=== PATIENT | male | born 1935 | race Caucasian/White ===

== ENCOUNTER 2018-04-23 08:10 | Outpatient (CLI) | payer MEDICARE, SELFPAY ==
[2018-04-23 14:40] LABS: ALT 22 U/L (12-78); AST 18 U/L (15-37); Albumin 3.6 g/dL (3.4-5.0); Alkaline Phosphatase 98 U/L (46-116); Anion Gap 8.8 mmol/L (3-11); BUN 21 mg/dL (7-18); Bilirubin, Total 0.8 mg/dL (0.2-1.0); CO2 29.2 mmol/L (21.0-32.0); CREATININE 1.41 mg/dL (0.70-1.30); Calcium 9.3 mg/dL (8.5-10.1); Chloride 100 mmol/L (98-107); Cholesterol 155 mg/dL (50-200); Estimated GFR 48.24 (mL/min/1.73m2); Glucose 92 mg/dL (70-100); HDL Cholesterol 35 mg/dL (40-60); LDL CHOLESTEROL 104 mg/dL (<100); Potassium 4.6 mmol/L (3.5-5.1); Sodium 138 mmol/L (136-145); Total Protein 7.3 g/dL (6.4-8.2); Triglyceride 80 mg/dL (30-150)
== END 2018-04-23 08:30 ==
PROVIDERS: PCP Nurse Practitioner; Visit Provider Nurse Practitioner
DX: E78.5 Hyperlipidemia, unspecified (principal); I10 Essential (primary) hypertension
CPT/HCPCS: 36415; 80053; 80061; 83721

== ENCOUNTER 2019-04-20 03:05 | Outpatient (CLI) | payer MEDICARE, SELFPAY ==
[2019-04-20 10:56] LABS: ALT 15 U/L (16-63); AST 14 U/L (15-37); Albumin 3.6 g/dL (3.4-5.0); Alkaline Phosphatase 98 U/L (46-116); Anion Gap 8.6 mmol/L (3-11); BUN 20 mg/dL (7-18); Bilirubin, Total 0.8 mg/dL (0.2-1.0); CO2 29.4 mmol/L (21.0-32.0); CREATININE 1.34 mg/dL (0.70-1.30); Calcium 9.2 mg/dL (8.5-10.1); Calculated LDL 91 mg/dL; Chloride 104 mmol/L (98-107); Cholesterol 141 mg/dL (<200); Estimated GFR 51.03 (mL/min/1.73m2); Glucose 86 mg/dL (74-106); HDL Cholesterol 38 mg/dL (40-60); Potassium 5.2 mmol/L (3.5-5.1); Sodium 142 mmol/L (136-145); Total Protein 7.3 g/dL (6.4-8.2); Triglyceride 61 mg/dL (<150)
== END 2019-04-20 03:25 ==
PROVIDERS: PCP Nurse Practitioner; Visit Provider Nurse Practitioner
DX: E78.5 Hyperlipidemia, unspecified (principal); I10 Essential (primary) hypertension; I25.10 Atherosclerotic heart disease of native coronary artery without angina pectoris; N18.3 Chronic kidney disease, stage 3 (moderate)
CPT/HCPCS: 36415; 80053; 80061

== ENCOUNTER 2020-04-17 06:44 | Emergency (ER) | payer MEDICARE, SELFPAY ==
[2020-04-17] VITALS (27 sets, daily range): BP systolic 114–133; BP diastolic 71–84; PULSE 82–126; RESP 13–32; TEMP 36.7; O2SAT 96–100
--- NOTE | 2020-04-17 | DI.CT_ITS ---
EXAM: CT LOWER EXTREMITY LT WO CLINICAL HISTORY: pathologic fracture of the left prox femur. TECHNIQUE: Imaging Protocol: Axial computed tomography images with coronal and sagittal reformatted images were created and reviewed. CONTRAST MATERIAL: Intravenous: None COMPARISON: Plain films from earlier today reviewed FINDINGS: There is a significantly displaced fractures through the lower intertrochanteric-subtrochanteric leo on of the left hip. There is a permeated of osseous pattern and this is a pathologic fracture. The femoral cortex below this level is hyperdense and exhibits some lucent areas. Similar findings are n ot seen in the femoral head and neck nor in the acetabulum nor in the ipsilateral pubic rami and isch ial tuberosity. IMPRESSION: Findings are consistent with a significantly displaced pathologic fracture of the lower intertrochant david-subtrochanteric region of the left hip. There is an ominous permeated of osseous pattern in the ipsilateral femur. RADIATION DOSE DELIVERED: 382.01mGy.cm Total DLP DATA REPOSITORY: All CT scans at this facility are submitted to the National Radiology Data Registry (NRDR) Dose Index Registry (DIR) with the [employer] (ACR). RADIATION OPTIMIZATION: All CT scans at this facility use at least one of these dose optimization te chniques: automated exposure control; mA and/or kV adjustment per patient size (includes targeted exa ms where dose is matched to clinical indication); or iterative reconstruction.
--- NOTE | 2020-04-17 06:30 | RT.EKG_ITS ---
APPROVED REPORT Exam: Resting ECG Patient Location: E HR:115 bpm ECG Measurements Heart Rate 115 AXIS ND 139 P 0 QRSd 169 QRS -104 QT 383 T 84 QTc 529 Conclusion Sinus tachycardia...rate> 99 RBBB and LAFB...QRSd >120mS, axis(-40,240) Lateral infarct, old...Q>40mS, flat T, V5 V6 I aVL
--- NOTE | 2020-04-17 06:30 | DI.RAD_ITS ---
EXAM: XR HIP LT COMPLETE AP PELVIS CLINICAL HISTORY: pain s/p fall. TECHNIQUE: 2D digital imaging was performed. COMPARISON: No exams were available for comparison FINDINGS: There is a severely displaced intertrochanteric fracture of the left hip. The subtrochanteric region there is cirrhotic change in the left femur which may represent blastic metastatic disease. In the opposite-right hip there is a 1 centimeter lucency in the upper subtrochanteric region which may be l ytic. Incidentally noted are limbs from what is probably an aortic EVAR graft and there are embolization co ils in both internal iliac arteries. IMPRESSION: Displaced intertrochanteric fracture of the left hip. 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 1 centimeter lucent bone lesion in the opposite-right hip, possibly lytic. Aortic EV AR noted. DATA REPOSITORY: RADIATION DOSE DELIVERED:
--- NOTE | 2020-04-17 06:30 | DI.RAD_ITS ---
EXAM: XR CHEST 1V IN DI DEPT CLINICAL HISTORY: pain s/p fall. TECHNIQUE: 2D digital imaging was performed. COMPARISON: CR CHEST 2 VIEWS PA,LAT from 07/14/2017 CR CHEST 2 VIEWS PA,LAT from 07/14/2017 FINDINGS: Heart size upper normal. Sternotomy wires and evidence of previous CABG Emphysematous changes but no new infiltrates nor pleural effusions. No pulmonary edema No obvious fractures IMPRESSION: No acute pulmonary findings on this single AP portable view of the chest. DATA REPOSITORY: RADIATION DOSE DELIVERED:
--- NOTE | 2020-04-17 06:47 | ED.GENADUL_ITS ---
Discharge Plan Disposition Patient Disposition: [facility] Condition: Serious Discharge Details Clinical Impression: Closed fracture of left hip, Pathologic fracture Primary Care Provider: Esperanza Tillman ED Provider: Horace Reynoso Home Meds and New Rx's Prescriptions: No Action enalapril maleate 5 mg tablet 5 mg PO DAILY Qty: 90 RF: 3 clopidogrel [Plavix] 75 mg tablet 75 mg PO DAILY Qty: 90 RF: 3 folic acid 0.4 MG tablet 0.4 mg PO DAILY RF: 0 garlic 1 EACH capsule 1 ea PO DAILY RF: 0 nitroglycerin 0.4 MG tablet, sublingual 0.4 mg Sublingual PRN Qty: 30 RF: 0 cyanocobalamin (vitamin B-12) 1,000 mcg/mL solution 1,000 mcg IJ QMONTH Qty: 1 RF: 0 omega-3 fatty acids-fish oil 300-1,000 mg capsule 1 cap PO DAILY RF: 0 pravastatin 10 mg tablet 10 mg PO DAILY Qty: 90 RF: 3 Medical Decision Making <Valdo Fry MD - Last Filed: 04/17/20 07:25> 85 yo male with hx of ckd, hld, cad, who comes in after he tripped on his walker this morning and fell landing on his left hip, denies loc or preceding symptoms. HAs pain in the left hip with obvious deformity with what feels like the left acetabulum dislocated anteriorly, has strong distal pulses and sensation. No chest pain, abdominal pain, head pain or neck pain. Seems like amechanical fall causing likely hip fracture/dislocation. Will obtain xrays and preop labs and monitor. Denies any preceding symptoms so doubt presyncope/syncope. xray on my read shows left hip fracture, remains stable. Consulted with Dr. Breaux who will review films and likely OR later today or tomorrow. Will discuss with hospitalist about admission spoke with Dr. sol who agrees to admission. Pt remains stable. Will sign out to oncoming provider in the ED to f/u on lab results as he will likely be in the ED another hour or so. spoke with Dr. Breaux who advises this is a pathological fracture and requests femur xray and ct chest /abd/pelvis as well and will see the patient later today Differential Diagnosis Differential Diagnosis: left hip fracture, dislocation Medical Records Medical records reviewed: Yes I reviewed the patient's medical records. Imaging Data Radiologic Study: Attestation: I personally reviewed and interpreted this imaging study as follows: Imaging: X-Ray My impression: fracture left hip Radiologic Study #2: Attestation: I personally reviewed and interpreted this imaging study as follows: Imaging: X-Ray My impression: no acute findings on cxr ECG Data Attestation: I personally reviewed and interpreted this ECG (s) as follows: Prior ECG tracings: available for review Interpretation: sinus tachycardia, rate of 115, rbbb and lafb, qtc 529 <Horace Reynoso MD - Last Filed: 04/17/20 10:24> 8:55 -- Labs reviewed. I spoke with Dr. Breaux who recommends transfer to tertiary care facility for further treatment given complexity of disease. I called [facility] transfer center to request transfer. Images sent for review. --CT of the chest abdomen pelvis interpreted by radiology: IMPRESSION: 1. There is a displaced probable pathologic fracture of the idro-ajpewxhwhyjfjpfqp-hdth. There is a mixed lytic-blastic appearance of the upper femur at this level. In addition, there is a 10 x 9 millimeter lytic lesion in the anterior cortex subtrochanteric region of the opposite-right hip. There also appears to be subtle blastic involvement of the left iliac bone. 2. Enhancing area in the left side of the prostate gland which may be significant. There is no obturator adenopathy. 3. Pleural based infiltrate in the right lower lobe as described above, not associated with rib destruction or pleural effusion or intrathoracic adenopathy. This requires follow-up. 4. Aortic stent graft. No obvious anastomosis leak. [place] aortic sac diameter is 3.7 centimetres 5. There is scarring of the right kidney but no significant renal lesion. No hydronephrosis. 10:10 --I spoke with Dr. Fagan (emergency medicine physician) and Dr. Olvera (orthopedic surgeon) fire prevention specialist at [facility]. Discussed ED presentation course. They will accept the patient in transfer. Will arrange for scale balancer level transfer. Lab Data Lab results reviewed: Yes I reviewed the patient's lab results. Labs: Laboratory Tests Range/Units 04/17/20 04/17/20 04/17/20 07:17 07:17 07:17 WBC (4.4-10.8) 10^3/uL 17.39 H RBC (4.36-5.78) 10^6/uL 3.41 L Hgb (13.5-17.5) g/dL 10.4 L Hct (40.0-50.0) % 32.8 L MCV (80-95) fL 96.2 H MCH (27.0-33.0) pg 30.5 MCHC (32.0-36.0) % 31.7 L RDW (11.8-14.1) % 15.7 H Plt Count (130-400) 10^3/uL 444 H MPV (8.0-11.0) fL 9.6 Immature Gran % 0.6 Neutrophils % 91.1 Lymphocytes % 3.5 Monocytes % 4.5 Eosinophils % 0.1 Basophils % 0.2 Nucleated RBC % % 0 Absolute Neutrophils (1.2-6.7) 10^3/uL 15.84 H Absolute Lymphocytes (1.2-3.4) 10^3/uL 0.61 L Absolute Monocytes (0.1-0.8) 10^3/uL 0.78 Absolute Eosinophils (0.0-0.7) 10^3/uL 0.02 Absolute Basophils (0.0-0.2) 10^3/uL 0.03 PT (9.3-11.0) sec 12.1 H INR (0.9-1.1) 1.2 H APTT (21.0-27.5) sec 30.1 H Sodium (136-145) mmol/L 133 L Potassium (3.5-5.1) mmol/L 4.0 Chloride (98-107) mmol/L 97 L Carbon Dioxide (21.0-32.0) mmol/L 28.3 Anion Gap (3-11) mmol/L 7.7 BUN (7-18) mg/dL 13 Creatinine (0.70-1.30) mg/dL 1.18 Estimated GFR/1.73 m2 (mL/min/1.73m2) 58.95 Glucose (74-106) mg/dL 137 H Calcium (8.5-10.1) mg/dL 10.0 Total Bilirubin (0.2-1.0) mg/dL 0.6 AST (15-37) U/L 33 ALT (16-63) U/L 41 Alkaline Phosphatase (46-116) U/L 98 Troponin I (<0.06) ng/mL < 0.05 Total Protein (6.4-8.2) g/dL 7.9 Albumin (3.4-5.0) g/dL 2.1 L Patient ABO/Rh Antibody Screen Range/Units 04/17/20 07:17 WBC (4.4-10.8) 10^3/uL RBC (4.36-5.78) 10^6/uL Hgb (13.5-17.5) g/dL Hct (40.0-50.0) % MCV (80-95) fL MCH (27.0-33.0) pg MCHC (32.0-36.0) % RDW (11.8-14.1) % Plt Count (130-400) 10^3/uL MPV (8.0-11.0) fL Immature Gran % Neutrophils % Lymphocytes % Monocytes % Eosinophils % Basophils % Nucleated RBC % % Absolute Neutrophils (1.2-6.7) 10^3/uL Absolute Lymphocytes (1.2-3.4) 10^3/uL Absolute Monocytes (0.1-0.8) 10^3/uL Absolute Eosinophils (0.0-0.7) 10^3/uL Absolute Basophils (0.0-0.2) 10^3/uL PT (9.3-11.0) sec INR (0.9-1.1) APTT (21.0-27.5) sec Sodium (136-145) mmol/L Potassium (3.5-5.1) mmol/L Chloride (98-107) mmol/L Carbon Dioxide (21.0-32.0) mmol/L Anion Gap (3-11) mmol/L BUN (7-18) mg/dL Creatinine (0.70-1.30) mg/dL Estimated GFR/1.73 m2 (mL/min/1.73m2) Glucose (74-106) mg/dL Calcium (8.5-10.1) mg/dL Total Bilirubin (0.2-1.0) mg/dL AST (15-37) U/L ALT (16-63) U/L Alkaline Phosphatase (46-116) U/L Troponin I (<0.06) ng/mL Total Protein (6.4-8.2) g/dL Albumin (3.4-5.0) g/dL Patient ABO/Rh A Negative Antibody Screen Negative HPI <Valdo Fry MD - Last Filed: 04/17/20 07:25> General Mode of arrival: EMS . Date/Time Provider Initiated Documentation: 04/17/20 06:46 . Limitations to Documentation: no limitations . Information obtained by: patient . History of Present Illness 85 year old M presents to the emergency department with the chief complaint of left hip pain, described as moderate, and it has been constant. No relieving factors improve symptom(s), No exacerbating factors reported . Related Data Home Medications Medication Instructions Recorded Confirmed folic acid 0.4 mg PO DAILY tab-cap 07/28/12 04/17/20 garlic 1 ea PO DAILY 07/28/12 04/17/20 nitroglycerin 0.4 mg SUBLINGUAL PRN #30 tab 07/22/17 04/17/20 cyanocobalamin (vitamin B-12) 1,000 mcg IJ QMONTH #1 vial 01/05/18 04/17/20 1,000 mcg/mL injection solution omega-3 fatty acids-fish oil 300 1 cap PO DAILY cap 01/05/18 04/17/20 mg-1,000 mg capsule clopidogrel 75 mg tablet 75 mg PO DAILY #90 tab-cap 04/26/19 04/17/20 enalapril maleate 5 mg tablet 5 mg PO DAILY #90 tab-cap 04/26/19 04/17/20 pravastatin 10 mg tablet 10 mg PO DAILY #90 tab-cap 10/25/19 04/17/20 Previous Rx's Medication Instructions Recorded nitroglycerin 0.4 mg SUBLINGUAL PRN #30 tab 07/22/17 clopidogrel 75 mg tablet 75 mg PO DAILY #90 tab-cap 04/26/19 enalapril maleate 5 mg tablet 5 mg PO DAILY #90 tab-cap 04/26/19 pravastatin 10 mg tablet 10 mg PO DAILY #90 tab-cap 10/25/19 Allergies Allergy/AdvReac Type Severity Reaction Status Date / Time No Known Allergies Allergy Verified 04/17/20 06:48 Review of Systems <Valdo Fry MD - Last Filed: 04/17/20 07:25> All systems reviewed & are unremarkable except as noted in HPI and below Constitutional Constitutional: Denies chills, Denies fever(s) and Denies weakness Cardiovascular Cardiovascular: Denies chest pain and Denies dyspnea Respiratory Respiratory: Denies cough and Denies dyspnea Gastrointestinal Gastrointestinal: Denies abdominal pain, Denies nausea and Denies vomiting Neurologic Neurologic: Denies weakness PFSH <Valdo Fry MD - Last Filed: 04/17/20 07:25> Surgical History Amputation of right thumb 2002 Coronary Artery Bypass Gaft (CABG) 1983 Endoleak post (EVAR) endovascular aneurysm repair 2002 H/O abdominal surgery pancreas repair H/O vascular surgery 07/06/08 Repair of inguinal hernia Family History Mother No problems noted. Father No problems noted. Social History (Updated 10/20/18 @ 08:15 by Homa Kumar RN) Smoking/Tobacco Use Status: Former Tobacco Use Quit Date: 05/05/74 Smoking risk assessment performed?: Yes Alcohol Intake: current Alcohol Intake frequency: a few times a month Alcohol type: wine Substance use type: does not use Household members: spouse Number of Children: 3 Pets and animals: Yes Pets and animals: cat(s) What is your relationship status?: Panel score (0-1 are the most socially isolated patients): 1 What type of physical activity do you participate in: walking and other Details: lugging wood, yard work, fishing. Duration: 30-45 minutes/day Frequency: 3-4 times per week Seatbelt use: always Working smoke detector in home: Yes Fire extinguisher in home: Yes Carbon monox detector in home: Yes Firearms in home: Yes Firearms unloaded and locked: Yes Do you feel safe at home: Yes Do you feel safe in your relationship?: Yes Exam <Valdo Fry MD - Last Filed: 04/17/20 07:25> Const General: no acute distress Orientation: alert [facility] Head: normal to inspection Ears: external ears normal General nose exam: external nose normal Mouth: moist mucous membranes Eyes General: appearance normal, both eyes and all related structures Neck Neck: normal visual inspection Resp Effort & Inspection: normal respiratory effort and able to speak in complete sentences Cardio Rate: regular rate Skin General skin exam: no rashes or lesions noted Neuro General: patient alert and patient oriented x3 Extrem General: capillary refill normal Psych Mental Status: mental status grossly normal Sign Out <Valdo Fry MD - Last Filed: 04/17/20 07:25> Sign Out Data: Sign Out Comment: pathological hip fracture, Dr. Chung aware and Dr. Sol accepts for admission. Follow up labs and also has pending ct/chest/abd/pelvis and femur xray for cancer screening Last updated by Valdo Fry MD at 04/17/20 07:28
--- NOTE | 2020-04-17 07:15 | DI.CT_ITS ---
EXAM: CT CHEST/ABD/PEL W CLINICAL HISTORY: pathological left hip fracture, ?cancer. TECHNIQUE: Imaging Protocol: Axial computed tomography images with coronal and sagittal reformatted images were created and reviewed CONTRAST MATERIAL: Intravenous: Omnipaque 350 Contrast volume:100 ml Oral: None COMPARISON: No exams were available for comparison FINDINGS: CHEST: LUNGS: There is pleural based infiltrate in the posterior basal segment of the right lower lobe. Thi s measures approximately 2.5 centimetres wide by 1 centimeter. There is no associated rib destructio n.. No associated pleural effusion. Mild benign-appearing increased markings are noted in the poste rior basal segment of the opposite-left lower lobe. No left pleural effusion. MEDIASTINUM: There is no hilar nor mediastinal adenopathy. Visualized thyroid unremarkable. CARDIAC: Heart size is normal. There is no pericardial effusion.Caliber of the thoracic aorta is wit hin normal limits. OSSEOUS: No significant osseous lesions.. ABDOMEN: There is no ascites. LIVER: No focal hepatic lesions. Mild prominence of intrahepatic ducts. GALLBLADDER/BILIARY: There are no gallstones evident but the gallbladder appears slightly distended. CBD diameter is upper normal. PANCREAS: No evidence of pancreatic mass nor dilatation of the pancreatic duct. SPLEEN: Spleen is not enlarged. There are no intrasplenic lesions. Splenic and portal veins are castillo nt. ADRENALS: There are no significant adrenal masses. KIDNEYS: No calculi nor hydronephrosis. No solid renal masses. No renal cysts evident. Cortical scar ring in the right kidney is noted. No ominous renal masses. No hydronephrosis. No hydroureter. No obvious abnormality in the urinary bladder. ABDOMINAL AORTA: There is an aortic EVAR. Tribal sac diameter is 3.7 centimetres. No occlusion. Mi ld aneurysmal dilatation of the left common femoral artery. ABDOMINAL WALL/GI: No evidence of significant anterior abdominal wall hernia. No bowel obstruction. No ischemic appearing bowel loops. PELVIS: LYMPH NODES: There is no intrapelvic nor inguinal adenopathy. GI: No evidence of appendicitis.No evidence of sigmoid diverticulitis. URINARY BLADDER: No calculi nor masses evident REPRODUCTIVE: Prostate gland slightly prominent. Abnormal enhancing region in left side of the prost ate gland, possibly significant with respect to lesion. OSSEOUS: There is a displaced intertrochanteric fracture of the left hip. There is also abnormal den sity at the fracture site combination lytic and blastic appearance. In addition, there is a small ly tic lesion in the opposite-right hip involving the anterior cortex of the subtrochanteric region and measuring approximately 9 x 10 millimeters, associated with cortical dehiscence. No other lytic lesi ons identified. Subtle increased intraosseous density in left side of the pelvis may be blastic. IMPRESSION: 1. There is a displaced probable pathologic fracture of the ngln-hplktwtelegxfiatg-lfwd. There is a mixed lytic-blastic appearance of the upper femur at this level. In addition, there is a 10 x 9 mill imeter lytic lesion in the anterior cortex subtrochanteric region of the opposite-right hip. There a lso appears to be subtle blastic involvement of the left iliac bone. 2. Enhancing area in the left side of the prostate gland which may be significant. There is no obtur ator adenopathy. 3. Pleural based infiltrate in the right lower lobe as described above, not associated with rib destr uction or pleural effusion or intrathoracic adenopathy. This requires follow-up. 4. Aortic stent graft. No obvious anastomosis leak. Tribal aortic sac diameter is 3.7 centimetres 5. There is scarring of the right kidney but no significant renal lesion. No hydronephrosis. RADIATION DOSE DELIVERED: 785.93mGy.cm Total DLP DATA REPOSITORY: All CT scans at this facility are submitted to the National Radiology Data Registry (NRDR) Dose Index Registry (DIR) with the [employer] ([employer]). RADIATION OPTIMIZATION: All CT scans at this facility use at least one of these dose optimization te chniques: automated exposure control; mA and/or kV adjustment per patient size (includes targeted exa ms where dose is matched to clinical indication); or iterative reconstruction.
--- NOTE | 2020-04-17 07:15 | DI.RAD_ITS ---
EXAM: XR FEMUR LT CLINICAL HISTORY: hip fracture. TECHNIQUE: 2D digital imaging was performed. COMPARISON: No exams were available for comparison FINDINGS: Displaced inter-subtrochanteric fracture of the left hip noted. There is mixed lytic-blastic involve ment of the upper half of the femur including a permeative pattern. No additional fractures evident lower down in femur. However, there is lucent lesions seen in the anterior cortex of the lower 3rd o f the femur. IMPRESSION: As above. Findings are consistent with a pathologic fracture of the inter-subtrochanteric region. T here is permeated of involvement of the femur at and below this level. Please note that there is also a 10 millimeter lytic lesion seen in the anterior cortex of the opposi te-right hip subtrochanteric region as seen on CT scan performed earlier today. DATA REPOSITORY: RADIATION DOSE DELIVERED:
[2020-04-17 07:27] LABS: Abs Immature Grans 0.11 10^3/uL (0.0-0.06); Absolute Basophil Count 0.03 10^3/uL (0.0-0.2); Absolute Eosinophil Count 0.02 10^3/uL (0.0-0.7); Absolute Neutrophil Count 15.84 10^3/uL (1.2-6.7); Basophils % 0.2; Eosinophils % 0.1; HCT 32.8 % (40.0-50.0); HGB 10.4 g/dL (13.5-17.5); Immature Grans % 0.6; Lymphocytes % 3.5; MCH 30.5 pg (27.0-33.0); MCHC 31.7 % (32.0-36.0); MCV 96.2 fL (80-95); MPV 9.6 fL (8.0-11.0); Monocytes % 4.5; Neutrophils % 91.1; Nucleated RBC 0 %; Platelet Count 444 10^3/uL (130-400); RBC 3.41 10^6/uL (4.36-5.78); RDW 15.7 % (11.8-14.1); RDW-SD 55.1 fL; WBC 17.39 10^3/uL (4.4-10.8)
[2020-04-17 07:29] LABS: Absolute Lymphocyte Count 0.61 10^3/uL (1.2-3.4); Absolute Monocyte Count 0.78 10^3/uL (0.1-0.8)
[2020-04-17 07:44] LABS: ALT 41 U/L (16-63); AST 33 U/L (15-37); Albumin 2.1 g/dL (3.4-5.0); Alkaline Phosphatase 98 U/L (46-116); Anion Gap 7.7 mmol/L (3-11); BUN 13 mg/dL (7-18); Bilirubin, Total 0.6 mg/dL (0.2-1.0); CO2 28.3 mmol/L (21.0-32.0); CREATININE 1.18 mg/dL (0.70-1.30); Chloride 97 mmol/L (98-107); Estimated GFR 58.95 (mL/min/1.73m2); Glucose 137 mg/dL (74-106); Sodium 133 mmol/L (136-145); Total Protein 7.9 g/dL (6.4-8.2)
[2020-04-17 07:55] LABS: Troponin I < 0.05 ng/mL (<0.06)
[2020-04-17 08:03] LABS: INR 1.2 (0.9-1.1); PTT Activated 30.1 sec (21.0-27.5); Prothrombin Time 12.1 sec (9.3-11.0)
[2020-04-17] MEDS: Omnipaque 350 MG/ML 100 ML BTL IJ (08:44)
[2020-04-17] MEDS: Normal Saline - Diluent 50 ML VIAL IV (08:47)
[2020-04-17] MEDS: Normal Saline Flush 10 ML SYR IVP (09:29)
[2020-04-17] MEDS: Normal Saline 1,000 ML 100 ML IV (09:29)
--- NOTE | 2020-04-17 10:45 | RT.EKG_ITS ---
APPROVED REPORT Exam: Resting ECG Patient Location: E HR:115 bpm ECG Measurements Heart Rate 115 AXIS ME 136 P 113 QRSd 165 QRS -72 QT 363 T 93 QTc 503 Conclusion Sinus tachycardia...rate> 99 Atrial premature complex...SV complex w/ short R-R interval Probable left atrial enlargement...P >50mS, <-0.10mV V1 RBBB and LAFB...QRSd >120mS, axis(-40,240)
[2020-04-17 10:50] LABS: Troponin I 2.69 ng/mL (<0.06)
[2020-04-17 17:47] LABS: PSA, Screening 49.7 ng/mL (0.0-6.5)
[2020-04-17 20:39] LABS: COVID-19 RT-PCR UVMMC Result Negative (Negative)
--- NOTE | 2020-04-18 13:08 | NUR.NOTE ---
Patient transferred to [facility] [address] [place]. Covid result faxed to [phone].ursing Note:
[2020-04-18 14:33] LABS: Albumin 35.8 % (55.8-66.1); Comment (See Note); Total Protein 6.7 g/dL (6.3-8.2)
[2020-04-18 16:34] LABS: Immunotyping, Serum (See Note)
--- NOTE | 2020-04-19 10:14 | NUR.NOTE ---
Homer is currently a patient at [facility]---unit notified of negative Covid--faxed to [phone] per request of unit Nursing Note:
--- NOTE | 2020-04-21 14:45 | NUR.NOTE ---
Nursing Note: Chart accessed as pt's COVID result was on COVID callback board. [facility] [place].
== END 2020-04-17 11:22 | disposition short-term general hospital (02) ==
PROVIDERS: Emergency Medicine; Student in an Organized Health Care Education/Training Program; Emergency Provider Student in an Organized Health Care Education/Training Program; PCP Nurse Practitioner
DX: M84.652A Pathological fracture in other disease, left femur, initial encounter for fracture (principal); W18.39XA Other fall on same level, initial encounter; R91.8 Other nonspecific abnormal finding of lung field; R77.8 Other specified abnormalities of plasma proteins; Z03.818 Encounter for observation for suspected exposure to other biological agents ruled out; I12.9 Hypertensive chronic kidney disease with stage 1 through stage 4 chronic kidney disease, or unspecified chronic kidney disease; N18.30 Chronic kidney disease, stage 3 unspecified; Z11.59 Encounter for screening for other viral diseases
CPT/HCPCS: 36415; 73552; 74177; 80053; 84153; 86850; 86900; 86901; 93005; 99285; U0003; 71045; 71260; 73502; 73700; 84165; 84484; 85025; 85610; 85730; 86320; 93010; J3490

== ENCOUNTER 2020-04-29 13:43 | Outpatient (REF) | payer MEDICARE, SELFPAY ==
[2020-05-01 21:37] LABS: COVID-19 RT-PCR Result Not Detected ((See Note))
== END 2020-04-29 14:03 ==
LOC: LBN 13:43
PROVIDERS: PCP Nurse Practitioner; Visit Provider Nurse Practitioner Adult Health
DX: Z11.59 Encounter for screening for other viral diseases (principal)
CPT/HCPCS: U0003

== ENCOUNTER 2020-05-03 16:07 | Outpatient (REF) | payer SELFPAY ==
[2020-05-03 15:44] LABS: Bilirubin Negative (Negative); Blood Trace-lysed (Negative); Clarity Clear (Clear); Glucose Negative (Negative); Ketones Negative (Negative); Leukocyte Esterase Negative (Negative); Nitrite Negative (Negative); Urobilinogen >=8.0 EU/dL (Up TO 0.2); pH 5.5 (5-8)
[2020-05-03 15:50] LABS: Absolute Basophil Count 0.07 10^3/uL (0.0-0.2); Absolute Lymphocyte Count 1.76 10^3/uL (1.2-3.4); Absolute Monocyte Count 1.17 10^3/uL (0.1-0.8); Basophils % 0.4; Eosinophils % 0.6; HCT 26.2 % (40.0-50.0); HGB 8.1 g/dL (13.5-17.5); Immature Grans % 0.6; Lymphocytes % 10.4; MCH 30.6 pg (27.0-33.0); MCHC 30.9 % (32.0-36.0); MCV 98.9 fL (80-95); Monocytes % 6.9; Neutrophils % 81.1; Nucleated RBC 0 %; Platelet Count 459 10^3/uL (130-400); RBC 2.65 10^6/uL (4.36-5.78); RDW 17.2 % (11.8-14.1); RDW-SD 61.8 fL; WBC 16.89 10^3/uL (4.4-10.8)
[2020-05-03 16:21] LABS: Anion Gap 5.4 mmol/L (3-11); BUN 21 mg/dL (7-18); CO2 29.6 mmol/L (21.0-32.0); CREATININE 1.01 mg/dL (0.70-1.30); Calcium 9.8 mg/dL (8.5-10.1); Chloride 96 mmol/L (98-107); Glucose 110 mg/dL (74-106); Potassium 4.5 mmol/L (3.5-5.1); Sodium 131 mmol/L (136-145)
[2020-05-03 16:21] LABS: Bacteria Few HPF (Negative); C & S Indicated? No; Casts Negative LPF (Negative); Crystals Few Amorphous HPF (Negative); Epithelial Cells Few HPF (Negative); Mucus Negative (Negative); Other Cells Negative (Negative); RBC Negative HPF (0-2); WBC 0-2 HPF (0-5)
== END 2020-05-03 16:27 ==
LOC: LBN 16:07
PROVIDERS: PCP Nurse Practitioner; Visit Provider Nurse Practitioner Adult Health
DX: E87.1 Hypo-osmolality and hyponatremia (principal); R41.0 Disorientation, unspecified; I21.4 Non-ST elevation (NSTEMI) myocardial infarction; R82.998 Other abnormal findings in urine
CPT/HCPCS: 80048; 81003; 81015; 85025

== ENCOUNTER 2020-05-07 11:24 | Outpatient (REF) | payer SELFPAY ==
[2020-05-07 11:48] LABS: Abs Immature Grans 0.04 10^3/uL (0.0-0.06); Absolute Basophil Count 0.05 10^3/uL (0.0-0.2); Absolute Monocyte Count 0.89 10^3/uL (0.1-0.8); Basophils % 0.4; Eosinophils % 1.9; HCT 27.5 % (40.0-50.0); HGB 8.7 g/dL (13.5-17.5); Immature Grans % 0.4; Lymphocytes % 6.2; MCHC 31.6 % (32.0-36.0); MCV 97.9 fL (80-95); MPV 10.1 fL (8.0-11.0); Monocytes % 7.8; Neutrophils % 83.3; Nucleated RBC 0 %; Platelet Count 323 10^3/uL (130-400); RBC 2.81 10^6/uL (4.36-5.78); RDW 17.1 % (11.8-14.1); RDW-SD 61.3 fL; WBC 11.35 10^3/uL (4.4-10.8)
[2020-05-07 11:59] LABS: Absolute Eosinophil Count 0.22 10^3/uL (0.0-0.7); Absolute Neutrophil Count 9.45 10^3/uL (1.2-6.7)
[2020-05-07 12:03] LABS: ALT 57 U/L (16-63); AST 44 U/L (15-37); Albumin 1.7 g/dL (3.4-5.0); Alkaline Phosphatase 141 U/L (46-116); Anion Gap 6.4 mmol/L (3-11); BUN 15 mg/dL (7-18); Bilirubin, Total 1.2 mg/dL (0.2-1.0); CO2 28.6 mmol/L (21.0-32.0); CREATININE 0.92 mg/dL (0.70-1.30); Calcium 9.5 mg/dL (8.5-10.1); Chloride 96 mmol/L (98-107); Glucose 138 mg/dL (74-106); Potassium 4.1 mmol/L (3.5-5.1); Sodium 131 mmol/L (136-145); Total Protein 5.8 g/dL (6.4-8.2)
== END 2020-05-07 11:44 ==
LOC: LBN 11:24
PROVIDERS: PCP Nurse Practitioner; Visit Provider Family Medicine
DX: I10 Essential (primary) hypertension (principal); C90.00 Multiple myeloma not having achieved remission
CPT/HCPCS: 80053; 85025

== ENCOUNTER 2020-05-07 11:30 | Outpatient (REF) | payer MEDICARE, SELFPAY ==
[2020-05-08 18:47] LABS: COVID-19 RT-PCR Result Not Detected ((See Note))
== END 2020-05-07 11:50 ==
LOC: LBN 11:30
PROVIDERS: PCP Nurse Practitioner; Visit Provider Nurse Practitioner Adult Health
DX: Z11.59 Encounter for screening for other viral diseases (principal)
CPT/HCPCS: U0003

== ENCOUNTER 2020-05-12 20:28 | Outpatient (REF) | payer MEDICARE, SELFPAY ==
[2020-05-13 17:27] LABS: COVID-19 RT-PCR Result Not Detected ((See Note))
== END 2020-05-12 20:48 ==
LOC: LBN 20:28
PROVIDERS: PCP Nurse Practitioner; Visit Provider Nurse Practitioner Adult Health
DX: Z11.59 Encounter for screening for other viral diseases (principal)
CPT/HCPCS: U0003